=== PATIENT | male | born 1955 | race Caucasian/White ===

== ENCOUNTER 2017-12-19 08:21 | Day surgery (SDC) | payer BC ==
[~2017-12-19] VITALS: Ht 175.3 cm; Wt 79.9 kg
[2017-12-19] VITALS (8 sets, daily range): BP systolic 99–119; BP diastolic 67–84; PULSE 58–73; TEMP 97.5
[~2017-12-19 08:21] MED LIST: ALTACE 2.5MG T2.5 MG PO; ASCRIPTIN1 TA1; ASPIRIN 32325 MG/TAB PO; IMDUR 60MG60 MG/TAB; LIVALO4 MG PO; MAREPA1200 MG; NEXIUM 40MG40 MG PO; NITROQUICK0.4 MG; PLAVIX 75MG TAB75 MG PO; RANEXA 500MG T500 MG; TENORMIN 2525 MG/TAB; TYLENOL ARTHRI650 M1 PO; VOLTAREN 50MG T50 MG PO; Z-BEC1 TAB
[2017-12-19] MEDS ORDERED: PRILOSEC 20MG20 MG PO (08:49)
== END 2017-12-19 13:10 | disposition home or self-care (01) ==
LOC: SDCO 08:21
DX: Z12.11 Encounter for screening for malignant neoplasm of colon (principal); D12.8 Benign neoplasm of rectum; K64.0 First degree hemorrhoids; K22.2 Esophageal obstruction; K44.9 Diaphragmatic hernia without obstruction or gangrene
CPT/HCPCS: OP; C1726; J2250; J3010; J7030

== ENCOUNTER 2019-06-04 07:11 | Day surgery (SDC) | payer BC ==
[~2019-06-04] VITALS: Ht 175.3 cm; Wt 80.0 kg
[~2019-06-04 07:11] MED LIST changes: +PRILOSEC 20MG20 MG PO
[2019-06-04] MEDS ORDERED: ADVIL200 MG PO (07:27)
[2019-06-04 08:08] VITALS: BP 106/71; PULSE 75; TEMP 98.4
[2019-06-04 09:05] VITALS: BP 108/78; PULSE 65; TEMP 97.3
--- NOTE | 2019-06-04 09:05 | NUR ---
Patient arrives back to [facility] very drowsy. Ambulates from cart to chair with standby assist and without any difficulties or complications. Patient monitor applied, vitals stable. Patient given water and muffin.
--- NOTE | 2019-06-04 09:15 | NUR ---
Patient sleeping in chair. Vitals stable.
[2019-06-04 09:20] VITALS: BP 94/70; PULSE 62
--- NOTE | 2019-06-04 09:30 | NUR ---
Patient's sister at bedside.
--- NOTE | 2019-06-04 09:30 | NUR ---
Patient more alert, and eating/drinking at this time. Vitals stable.
[2019-06-04 09:35] VITALS: BP 114/63; PULSE 56
--- NOTE | 2019-06-04 09:45 | NUR ---
Patient alert, tolerating water and muffin without any nausea. Patient's sister at bedside. Vitals stable. IV discontinued.
--- NOTE | 2019-06-04 09:45 | NUR ---
Waiting for Dr Jones to go over results with patient.
--- NOTE | 2019-06-04 10:00 | NUR ---
Patient changing at this time.
--- NOTE | 2019-06-04 10:05 | NUR ---
Dr Jones into see patient at this time.
--- NOTE | 2019-06-04 10:15 | NUR ---
Dismissal instructions gone over with patient and patient's sister. Both verbalize understanding and all questions answered.
--- NOTE | 2019-06-04 10:20 | NUR ---
Patient discharged to patient enterance via wheelchair to private vehicle patient's sister is driving. Patient leaves thanking staff for services.
== END 2019-06-04 10:20 | disposition home or self-care (01) ==
LOC: SDCO 07:11
DX: D12.3 Benign neoplasm of transverse colon (principal); D12.8 Benign neoplasm of rectum; K64.0 First degree hemorrhoids; K21.9 Gastro-esophageal reflux disease without esophagitis; K22.70 Barrett's esophagus without dysplasia; Z86.010 Personal history of colon polyps; Z85.828 Personal history of other malignant neoplasm of skin
CPT/HCPCS: J2250; J3010; J7030